=== PATIENT | male | born 1950 | race Caucasian/White ===

== ENCOUNTER 2024-11-14 15:06 | Emergency (ER) | payer BC ==
[~2024-11-14] VITALS: Ht 175.3 cm; Wt 90.9 kg
[2024-11-14] MEDS: LIDOcaine 1% W/epiNEPHrine 1:100,000 20ml vial IJ ONE (15:20)
--- NOTE | 2024-11-14 15:42 | RADIOLOGY REPORT ---
CT CT HEAD [facility] EX[facility] DATE: 11/14/2024 03:20 PM COMPARISON: None RADIATION DOSE: CTDIvol: 57 mGy, DLP: 1142 mGy*cm PROCEDURE: CT scans of the head were obtained from the vertex to the skull base. Sagittal and coronal reconstructions were provided. All CT scans at this medical facility are performed using dose modulation techniques as appropriate t o a performed exam including the following: Automated exposure control was utilized; adjustment of th e MA and/or KV according to patient size; and use of iterative reconstruction technique. FINDINGS: There is sulcal and ventricular prominence. The brainshows normal morphology and smiley-whi te matter differentiation, without intracranial hemorrhage, extra-axial fluid collection, mass effect or acute large vessel infarct. The ventricles are normal in size. The basal cisterns are patent. The skull and visible facial bones are intact. The paranasal sinuses, mastoid air cells and middle ear c avities are well-aerated. The soft tissues of the scalp are unremarkable. IMPRESSION: No acute intracranial abnormality.
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
[2024-11-14] MEDS: LIDOcaine/epinephrine/tetracaine TOPICAL sol 3 ML syringe TOP ONE (15:55)
[2024-11-14] MEDS: TETanus/Pertussis (Acell)/Diphther VAC/PF (Tdap-Adult) 0.5ml syringe IMVAC ONE (16:19)
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
[2024-11-14] MEDS ORDERED: LIDOcaine 2% Viscous 15ml cup MM PRN (16:35)
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
[2024-11-14] MEDS ORDERED: HYDR-3965 PO (17:01)
[2024-11-14] MEDS ORDERED: IBUP-860 PO (17:02)
[2024-11-14] MEDS: bacitracin 15gm ointment TP ONE ×2 (17:22→17:24)
[2024-11-14] MEDS: ketorolac trometh 30MG/ML vial 30 MG/ML VIAL IV ONE (17:23)
[2024-11-14] MEDS ORDERED: DOXY-1 PO (17:23)
[2024-11-14 17:25] VITALS: BP 132/84; PULSE 87; TEMP 98.6; O2SAT 98
[2024-11-14 18:14] VITALS: RESP 16
== END 2024-11-14 17:28 | disposition home or self-care (01) ==
LOC: ER 15:07
DX: S01.81XA Laceration without foreign body of other part of head, initial encounter (principal); S80.212A Abrasion, left knee, initial encounter; S80.211A Abrasion, right knee, initial encounter; S50.812A Abrasion of left forearm, initial encounter; V19.9XXA Pedal cyclist (driver) (passenger) injured in unspecified traffic accident, initial encounter; Y93.55 Activity, bike riding; Y92.89 Other specified places as the place of occurrence of the external cause; Y99.8 Other external cause status
CPT/HCPCS: 12013; 70450; 70490; 73080; 73090; 73564; 90471; 90715; 96374; 99285; A6222; A6223; J1885; A6449

== ENCOUNTER 2024-11-19 11:16 | Emergency (ER) | payer BC ==
[~2024-11-19] VITALS: Ht 177.8 cm; Wt 79.2 kg
[~2024-11-19 11:16] MED LIST: DOXY-1 PO; IBUP-860 PO
[2024-11-19 11:21] VITALS: BP 151/99; PULSE 81; RESP 15; TEMP 96.8; O2SAT 97
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
== END 2024-11-19 11:43 | disposition home or self-care (01) ==
LOC: ER 11:17
DX: S01.81XD Laceration without foreign body of other part of head, subsequent encounter (principal); V28 Motorcycle rider injured in noncollision transport accident
CPT/HCPCS: 99284; A6222

== ENCOUNTER 2024-11-19 17:01 | Emergency (ER) | payer BC ==
[~2024-11-19] VITALS: Ht 177.8 cm; Wt 78.6 kg
[2024-11-19 17:02] VITALS: BP 167/99; PULSE 85; RESP 16; TEMP 96; O2SAT 97
--- NOTE | 2024-11-19 17:17 | ELECTROCARDIOGRAPH REPORT ---
[facility] Test Date: 2024-11-19 Test Time: 17:14:41 Pat Name: AIRAM CHILDERS Department: EMERGENCY ROOM Room: Gender: M Bingo Usher: SHERLYN : 1950 Requested By: JOSE JONES Order Number: [id number] Reading MD: Dr. Indio Sanchez Measurements Intervals [place] Rate: 86 P: -35 IA: 212 QRS: -74 QRSD: 163 T: 65 QT: 448 QTc: 536 Interpretive Statements Sinus rhythm Borderline prolonged IA interval Right bundle branch block Anterior infarct, age indeterminate Electronically Signed On 11-24-2024 20:05:[address] Indio Sanchez Please click the below link to view image of tracing.
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
[2024-11-19 17:32] LABS: MEAN PLATELET VOLUME 8.0 FL (7.4-10.4); RED CELL DISTRIBUTION WIDTH 16.4 % (11.5-14.5)
[2024-11-19 17:49] LABS: CREATININE 0.84 MG/DL (0.60-1.10); PRO BRAIN NATRIURETIC PEPTIDE 612 PG/ML (0-125); TOTAL CARBON DIOXIDE 25.9 MMOL/L (24-32); eCRCL 82 ML/MIN; eGFR 90 ML/MIN
--- NOTE | 2024-11-19 18:24 | RADIOLOGY REPORT ---
CHEST RADIOGRAPH Indication: CP Technique: DI CHEST,SINGLE VIEW COMPARISON: None FINDINGS: The cardiac silhouette is enlarged. The lungs demonstrate bilateral patchy airspace opacities. Inters titial airspace opacities which could represent sequela of pulmonary edema, atypical infection, chron ic lung changes/disease.The pulmonary vasculature is prominent. There is no pleural effusion. There i s no pneumothorax. Aortic atherosclerotic disease. IMPRESSION: As above
== END 2024-11-19 19:30 | disposition left against medical advice (07) ==
LOC: ER 17:01
DX: R42 Dizziness and giddiness (principal); R51.9 Headache, unspecified; R06.02 Shortness of breath
CPT/HCPCS: 36415; 71045; 80048; 83880; 84484; 85025; 93005; 99285

== ENCOUNTER 2025-01-18 17:00 | Emergency (ER) | payer BC ==
[~2025-01-18] VITALS: Ht 177.8 cm; Wt 89.9 kg
[~2025-01-18 17:00] MED LIST changes: -DOXY-1 PO
[2025-01-18 17:07] VITALS: TEMP 97.9
--- NOTE | 2025-01-18 17:53 | RADIOLOGY REPORT ---
CLINICAL INDICATION: KNEE PAIN TECHNIQUE: Right DI KNEE, COMP 4 VW MIN Comparison: DI KNEE, COMP 4 VW MIN on DOS: 11/14/24 FINDINGS/IMPRESSION: : There is no evidence of acute fracture or dislocation. Soft tissues are unremarkable. [id number] degenerative patellofemoral joint space narrowing.
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
[2025-01-18] MEDS ORDERED: NITR0.4T51 SL (18:14)
[2025-01-18 18:15] VITALS: BP 141/90; PULSE 62; RESP 18; O2SAT 93
== END 2025-01-18 18:39 | disposition home or self-care (01) ==
LOC: ER 17:00
DX: M25.561 Pain in right knee (principal); W01.0XXA Fall on same level from slipping, tripping and stumbling without subsequent striking against object, initial encounter; Y93.89 Activity, other specified; Y92.89 Other specified places as the place of occurrence of the external cause; Y99.8 Other external cause status
CPT/HCPCS: 73564; 99284